=== PATIENT | male | born 1980 | race Caucasian/White ===

== ENCOUNTER 2016-12-01 08:54 | Day surgery (SDC) | payer BC ==
[2016-11-30 15:08] VITALS: BMI 27.3
[2016-12-01] MEDS ORDERED: MIDAZOLAM HCL 2 MG/2 ML SINGLE DOSE VIAL ONE (10:53)
[2016-12-01] MEDS ORDERED: BUPIVACAINE HCL/PF 2.5 MG/ML - 30 ML VIAL IJ ONE (12:03)
[2016-12-01] MEDS ORDERED: ONDANSETRON 4 MG/2 ML VIAL ONE (13:22)
[2016-12-01 14:46] VITALS: TEMP 97.9
[2016-12-01] MEDS ORDERED: oxyCODONE HCL 5 MG TABLET ONE (14:57)
[2016-12-01 15:37] VITALS: BP 118/72; PULSE 69
[2016-12-01] MEDS ORDERED: oxyCODONE HCL 5 MG TABLET PO PRN ×2 (16:05)
[2016-12-01] MEDS ORDERED: ONDANSETRON 4 MG/2 ML VIAL IVPUSH PRN (16:05)
[2016-12-01] MEDS ORDERED: LACTATED RINGERS SOLUTION 1,000 ML IV SCH (16:15)
--- NOTE | 2016-12-06 20:44 | OP ---
DATE OF OPERATION: 12/01/2016 PREOPERATIVE DIAGNOSIS: Left thumb ulnar collateral ligament complete tear. POSTOPERATIVE DIAGNOSIS: Left thumb ulnar collateral ligament complete tear. OPERATIVE PROCEDURE: Repair of left thumb ulnar collateral ligament of the thumb metacarpophalangeal joint. SURGEON: Stephen Hopkins M.D. [facility] NURSE: Nini Meeks COMPLICATIONS: None. ESTIMATED BLOOD LOSS: Minimal. INDICATION FOR PROCEDURE: The patient is a 36-year-old male with the above findings indicated for operative treatment. Risks, benefits, and alternatives were discussed with patient at length, informed consent was obtained. PROCEDURE: After proper identification of the patient and correct operative site, patient was brought to the operating room and placed supine on the operating room table, all bony prominences well padded. General anesthesia was provided by the anesthesiologist adequate for procedure. Left upper extremity was prepped and draped in the usual sterile fashion. Well padded tourniquet was placed with a sterile prep. Esmarch bandage to exsanguinate the left upper extremity. Tourniquet inflated to 250 mmHg. Curvilinear incision made over the thumb ulnar collateral ligament. Incision was taken sharply through skin with blunt and sharp dissection of subcutaneous tissues. Sensory nerve branch was identified and found to be entrapped in scar tissue locally, and this was freed. A Stener lesion was noted with the ulnar collateral ligaments superficial to the adductor aponeurosis. The adductor aponeurosis was then divided, and the collateral ligament was freed in order to allow repair. A small augustine of bone was visualized, and this was excised. The base of the thumb proximal phalanx was prepared for repair, and an Arthrex swivel lock anchor was placed at the base of the thumb proximal phalanx. This was preloaded with an Arthrex Fiberwire suture tape as well as a 4-0 Fiberwire suture. The 4-0 Fiberwire suture was used to repair the collateral ligament down to the proximal phalanx where it had been avulsed, and the fiber tape was then looped over the collateral ligament for an internal brace augmentation, and this was secured on the metacarpal with a 2nd swivel lock anchor. This provided secure, stable fixation of the ligament as well as the augmented repair. The thumb was taken through range of motion and full flexion and extension were achieved while the ulnar ligament had been securely reconstructed and stable. The wound was irrigated with saline, and the aponeurosis was repaired with a 4-0 Vicryl suture, and the skin was repaired utilizing 4-0 Vicryl and 4-0 Monocryl suture. Steri-Strips, sterile dressings, and thumb spica splint were placed. Jonathan Oquendo, child life assistant, was integral throughout the procedure. Procedure could not have been performed without a skilled operative child life assistant. Patient was brought to recovery in stable condition. He tolerated procedure well. STEPHEN HOPKINS M.D. [id number]
== END 2016-12-01 15:39 | disposition home or self-care (01) ==
LOC: FASU 08:54
PROVIDERS: ATTEND Orthopaedic Surgery Hand Surgery
PROC: 0RQU0ZZ Repair Right Metacarpophalangeal Joint, Open Approach (ICD-10-PCS; principal; 2016-12-01 11:58)
DX: S63.642A Sprain of metacarpophalangeal joint of left thumb, initial encounter (principal); X58.XXXA Exposure to other specified factors, initial encounter; Y93.9 Activity, unspecified; Y92.9 Unspecified place or not applicable
CPT/HCPCS: 94760